=== PATIENT | male | born 1960 | race Caucasian/White ===

== ENCOUNTER → 2016-11-18 | Outpatient (CLI) | payer BC ==
--- NOTE | 2016-11-18 12:44 | DIAGNOSTIC IMAGING REPORT ---
CHEST 2 VIEWS ROUTINE HISTORY: Chronic cough. COMPARISON: None. FINDINGS: The lungs are clear. Cardiac silhouette is normal in size. No pleural effusions. No pneumothorax. IMPRESSION: No acute process. Electronically signed by: Vicente Rebolledo M.D. 11/18/2016 12:42 PM Dictated Date/Time: 11/18/2016 12:40 PM
== END | disposition home or self-care (01) ==
LOC: C.RAD1850 12:19
PROVIDERS: ATTEND Family Medicine Adolescent Medicine
DX: R09.82 Postnasal drip (principal)

== ENCOUNTER → 2017-03-27 | Outpatient (CLI) | payer BC | END | disposition home or self-care (01) | LOC: C.RDSM 08:00 | PROVIDERS: ATTEND Physical Medicine & Rehabilitation Sports Medicine | DX: M25.561 Pain in right knee (principal) ==

== ENCOUNTER → 2017-08-16 | Outpatient (CLI) | payer BC ==
--- NOTE | 2017-08-16 13:00 | DIAGNOSTIC IMAGING REPORT ---
LEFT TIBIA/FIBULA 2 VIEWS HISTORY: PAIN IN LOWER L LEG COMPARISON: None. FINDINGS: Small focal area of smooth periosteal reaction along the proximal to mid medial tibial shaft. The fibula appears intact. Soft tissues are unremarkable. No radiopaque foreign bodies. IMPRESSION: Small focal area of smooth periosteal reaction along the proximal to mid medial tibial shaft. This may represent a developing stress fracture. MRI is recommended for further evaluation. Electronically signed by: Vicente Rebolledo M.D. 08/16/2017 12:59 PM Dictated Date/Time: 08/16/2017 12:57 PM
== END | disposition home or self-care (01) ==
LOC: C.RAD1850 11:23
PROVIDERS: ATTEND Family Medicine
DX: M79.662 Pain in left lower leg (principal)